=== PATIENT | female | born 1970 | race Caucasian/White ===

== ENCOUNTER 2019-02-10 16:12 | Emergency (ER) | payer BC, OTHER ==
[2019-02-10 16:21] VITALS: BMI 34.2
[2019-02-10] MEDS ORDERED: KETOROLAC TROMETHAMINE 60 MG/2 ML VIAL IM ONE (16:39)
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
[2019-02-10] MEDS ORDERED: DEXAMETHASONE SOD PHOSPHATE 10 MG/1 ML VIAL ONE (16:43)
[2019-02-10] MEDS ORDERED: KETOROLAC TROMETHAMINE 60 MG/2 ML VIAL ONE (16:43)
[2019-02-10] MEDS ORDERED: DEXAMETHASONE 4 MG TABLET (FP) PO ONE (16:45)
[2019-02-10] MEDS ORDERED: LORATADINE 10 MG TABLET PO ONE (17:11)
[2019-02-10] MEDS ORDERED: LORATADINE 10 MG TABLET ONE (17:17)
[2019-02-10 17:34] VITALS: BP 102/69; PULSE 98; TEMP 99.3
== END 2019-02-10 18:00 | disposition home or self-care (01) ==
LOC: JERFT 16:12
PROC: 3E0F7GC Introduction of Other Therapeutic Substance into Respiratory Tract, Via Natural or Artificial Opening (ICD-10-PCS; principal; 2019-02-10)
DX: R05 Cough (principal); Z77.22 Contact with and (suspected) exposure to environmental tobacco smoke (acute) (chronic)
CPT/HCPCS: 87070; 87880; 99282-25

== ENCOUNTER 2020-02-10 00:31 | Emergency (ER) | payer BC ==
[2020-02-10 00:47] VITALS: BP 132/88; PULSE 86; TEMP 98.6; BMI 35.7
[2020-02-10] MEDS ORDERED: ACETAMINOPHEN 325 MG TABLET (FP) PO ONE (01:13)
[2020-02-10] MEDS ORDERED: ACETAMINOPHEN 325 MG TABLET (FP) ONE (01:17)
[2020-02-10 01:56] LABS: EPI CELLS 24 /uL (0-25.1); HYALINE CASTS 0 /uL (0-3.1); PH,URINE 6.5 (5.0-8.0); URINE APPEARANCE CLEAR; URINE BACTERIA 197 /uL (0-1359); URINE BILIRUBIN NEGATIVE (NEGATIVE); URINE COLOR YELLOW; URINE GLUCOSE (UA) NEGATIVE (NEGATIVE); URINE KETONE NEGATIVE (NEGATIVE); URINE LEUK ESTERASE TRACE (NEGATIVE); URINE NITRITE NEGATIVE (NEGATIVE); URINE PROTEIN NEGATIVE (NEGATIVE); URINE RBC 3 /uL (0-23.9); URINE UROBILINOGEN 0.2 mg/dL (0.2-1.0); URINE WBC 18 /uL (0-25.8)
[2020-02-10] MEDS ORDERED: LIDOCAINE 5% TOPICAL PATCH TP ONE (02:34)
[2020-02-10 02:39] LABS: BASO % 0.5 % (0-2.0); HEMATOCRIT 38.5 % (32.4-45.2); HEMOGLOBIN 13.2 GM/dL (10.7-15.3); LYMPH % 34.5 % (8-40); MCH 31.5 pg (25.7-33.7); MCHC 34.2 g/dl (32.0-36.0); MEAN CELL VOLUME 92.1 fl (80-96); MEAN PLT VOLUME 9.1 fl (7.5-11.1); MONO % 8.6 % (3.8-10.2); NEUT % 54.4 % (42.8-82.8); PLATELET COUNT 171 K/MM3 (134-434); RBC 4.19 M/mm3 (3.60-5.2); RDW 13.2 % (11.6-15.6); WHITE BLOOD COUNT 7.2 K/mm3 (4.0-10.0)
[2020-02-10] MEDS ORDERED: LIDOCAINE 5% TOPICAL PATCH ONE (02:43)
[2020-02-10 02:56] LABS: POTASSIUM 3.9 mmol/L (3.5-5.1)
[2020-02-10 02:58] LABS: ALBUMIN 4.1 g/dl (3.4-5.0); BLOOD UREA NITROGEN 14.6 mg/dL (7-18); CALCIUM 9.3 mg/dL (8.5-10.1)
[2020-02-10 03:00] LABS: CREATININE 0.8 mg/dL (0.55-1.3)
[2020-02-10 03:03] LABS: TOT PROT 7.3 g/dl (6.4-8.2)
[2020-02-10 03:18] LABS: BILIRUBIN,TOTAL 0.7 mg/dL (0.2-1)
[2020-02-10] MEDS ORDERED: KETOROLAC TROMETHAMINE 30 MG/1 ML VIAL IM ONE (04:44)
[2020-02-10] MEDS ORDERED: KETOROLAC TROMETHAMINE 30 MG/1 ML VIAL ONE (04:46)
[2020-02-10] MEDS ORDERED: METHOCARBAMOL 500 MG TABLET PO ONE (05:01)
[2020-02-10] MEDS ORDERED: METHOCARBAMOL 500 MG TABLET ONE (05:02)
[2020-02-10] MEDS ORDERED: LIDOCAINE PATCH REMOVAL MC SCH (22:00)
== END 2020-02-10 05:05 | disposition home or self-care (01) ==
LOC: JER 00:31
PROC: 3E0233Z Introduction of Anti-inflammatory into Muscle, Percutaneous Approach (ICD-10-PCS; principal; 2020-02-10)
DX: S39.011A Strain of muscle, fascia and tendon of abdomen, initial encounter (principal)
CPT/HCPCS: 36415; 74176-TC; 76705-TC; 80053; 81003; 83605; 83690; 85025; 87086; 93005; 93010; 99285-25

== ENCOUNTER 2021-03-06 12:41 | Emergency (ER) | payer BC ==
[2021-03-06 12:53] VITALS: BMI 34.7
[2021-03-06 14:25] LABS: BASO % 1.1 % (0-2.0); EOS % 3.2 % (0-4.5); HEMATOCRIT 41.5 % (32.4-45.2); LYMPH % 33.8 % (8-40); MCH 30.7 pg (25.7-33.7); MCHC 33.6 g/dl (32.0-36.0); MEAN CELL VOLUME 91.3 fl (80-96); MEAN PLT VOLUME 8.1 fl (7.5-11.1); MONO % 7.6 % (3.8-10.2); NEUT % 54.3 % (42.8-82.8); PLATELET COUNT 190 10^3/uL (134-434); RBC 4.54 M/mm3 (3.60-5.2); RDW 13.6 % (11.6-15.6); WHITE BLOOD COUNT 6.9 K/mm3 (4.0-10.0)
[2021-03-06 14:33] LABS: CHLORIDE 102 mmol/L (98-107); SODIUM 127 mmol/L (136-145)
[2021-03-06 14:35] LABS: EPI CELLS 25 /uL (0-25.1); HYALINE CASTS 0 /uL (0-3.1); URINE APPEARANCE CLEAR; URINE BACTERIA 436 /uL (0-1359); URINE BILIRUBIN NEGATIVE (NEGATIVE); URINE COLOR YELLOW; URINE GLUCOSE (UA) NEGATIVE (NEGATIVE); URINE KETONE TRACE (NEGATIVE); URINE LEUK ESTERASE TRACE (NEGATIVE); URINE NITRITE NEGATIVE (NEGATIVE); URINE PROTEIN NEGATIVE (NEGATIVE); URINE RBC 5 /uL (0-23.9); URINE UROBILINOGEN 0.2 mg/dL (0.2-1.0); URINE WBC 15 /uL (0-25.8)
[2021-03-06 14:35] LABS: CALCIUM 8.6 mg/dL (8.5-10.1)
[2021-03-06 14:36] LABS: ALBUMIN 3.5 g/dl (3.4-5.0); BLOOD UREA NITROGEN 10.7 mg/dL (7-18); CO2 29 mmol/L (21-32); GLUCOSE,RANDOM 76 mg/dL (74-106)
[2021-03-06 14:38] LABS: INR 1.13 (0.83-1.09); SGPT/ALT 60 U/L (13-61)
[2021-03-06 14:39] LABS: CREATININE 0.8 mg/dL (0.55-1.3)
[2021-03-06 14:40] LABS: BILIRUBIN,TOTAL 1.1 mg/dL (0.2-1); TOT PROT 8.1 g/dl (6.4-8.2)
[2021-03-06 14:41] LABS: ALK PHOS 66 U/L (45-117)
[2021-03-06 14:43] LABS: ANION GAP -5 MMOL/L (8-16); SGOT/AST 122 U/L (15-37)
[2021-03-06 14:54] LABS: LIPASE < 10 U/L (73-393)
[2021-03-06] MEDS ORDERED: KETOROLAC TROMETHAMINE 30 MG/1 ML VIAL IVPUSH ONE (16:04)
[2021-03-06] MEDS ORDERED: KETOROLAC TROMETHAMINE 30 MG/1 ML VIAL ONE (16:33)
[2021-03-06 16:48] LABS: BLOOD UREA NITROGEN 8.8 mg/dL (7-18); CALCIUM 7.8 mg/dL (8.5-10.1)
[2021-03-06 16:52] LABS: CREATININE 0.5 mg/dL (0.55-1.3)
[2021-03-06] MEDS ORDERED: POTASSIUM CHLORIDE TABS 20 MEQ TABLET.ER (FP) PO ONE (16:56)
[2021-03-06 18:21] VITALS: BP 123/74; PULSE 78; TEMP 98
== END 2021-03-06 18:20 | disposition home or self-care (01) ==
LOC: JER 12:41
PROC: 3E0333Z Introduction of Anti-inflammatory into Peripheral Vein, Percutaneous Approach (ICD-10-PCS; principal; 2021-03-06)
DX: R10.31 Right lower quadrant pain (principal)
CPT/HCPCS: 36415; 74177-TC; 80048; 80053; 81003; 82962; 83605; 83690; 85025; 85610; 85730; 87086; 93005; 93010; 99285-25; C9803; Q9967; U0003; U0005

== ENCOUNTER 2021-07-24 10:48 | Inpatient (IN) | payer BC ==
[2021-07-24] MEDS ORDERED: KETOROLAC TROMETHAMINE 30 MG/1 ML VIAL IVPUSH ONE (12:10)
[2021-07-24] MEDS ORDERED: SODIUM CHLORIDE 1,000 ML IV STA (12:10)
[2021-07-24] MEDS ORDERED: KETOROLAC TROMETHAMINE 30 MG/1 ML VIAL ONE (12:19)
[2021-07-24] MEDS ORDERED: MAG HYDROX/AL HYDROX/SIMETH 30 ML UNIT-DOSE CUP PO ONE (12:21)
[2021-07-24] MEDS ORDERED: MAG HYDROX/AL HYDROX/SIMETH 30 ML UNIT-DOSE CUP ONE ×2 (12:23→21:20)
[2021-07-24 12:39] LABS: EPI CELLS 10 /uL (0-25.1); HYALINE CASTS 3 /uL (0-3.1); URINE APPEARANCE CLEAR; URINE BACTERIA 78 /uL (0-1359); URINE BILIRUBIN NEGATIVE (NEGATIVE); URINE COLOR DK YELLOW; URINE GLUCOSE (UA) NEGATIVE (NEGATIVE); URINE KETONE 3+ (NEGATIVE); URINE LEUK ESTERASE NEGATIVE (NEGATIVE); URINE NITRITE NEGATIVE (NEGATIVE); URINE PROTEIN 1+ (NEGATIVE); URINE RBC 13 /uL (0-23.9); URINE UROBILINOGEN 0.2 mg/dL (0.2-1.0); URINE WBC 10 /uL (0-25.8)
[2021-07-24 13:27] LABS: CALCIUM 9.1 mg/dL (8.5-10.1)
[2021-07-24 13:28] LABS: ALBUMIN 3.5 g/dl (3.4-5.0); BLOOD UREA NITROGEN 13.6 mg/dL (7-18)
[2021-07-24 13:30] LABS: CREATININE 0.7 mg/dL (0.55-1.3)
[2021-07-24 13:32] LABS: BASO % 0.6 % (0-2.0); BILIRUBIN,TOTAL 0.8 mg/dL (0.2-1); EOS % 0.9 % (0-4.5); HEMATOCRIT 43.6 % (32.4-45.2); HEMOGLOBIN 14.5 GM/dL (10.7-15.3); MCH 29.6 pg (25.7-33.7); MCHC 33.3 g/dl (32.0-36.0); MEAN CELL VOLUME 88.8 fl (80-96); MEAN PLT VOLUME 8.8 fl (7.5-11.1); MONO % 8.1 % (3.8-10.2); NEUT % 68.4 % (42.8-82.8); PLATELET COUNT 312 10^3/uL (134-434); RBC 4.91 M/mm3 (3.60-5.2); RDW 13.1 % (11.6-15.6); TOT PROT 7.2 g/dl (6.4-8.2); WHITE BLOOD COUNT 7.1 K/mm3 (4.0-10.0)
[2021-07-24 15:20] LABS: URINE CRYSTALS CA OXALATE /hpf
[2021-07-24] MEDS ORDERED: morphine SULFATE 4 MG/ML VIAL IVPUSH ONE (17:16)
[2021-07-24] MEDS ORDERED: morphine SULFATE 4 MG/ML VIAL ONE (17:26)
[2021-07-24 18:39] LABS: BF WBC & OTHER NUCLEATED CELLS 2902 /mm3
[2021-07-24 20:18] LABS: BODY FLUID MONOCYTE 4 %
[2021-07-24 20:19] LABS: BODY FLUID MACROPHAGES 47 %; BODY FLUID MESOTHELIAL 5 %
[2021-07-24] MEDS: MAG HYDROX/AL HYDROX/SIMETH 30 ML UNIT-DOSE CUP PO PRN (21:25)
[2021-07-25] MEDS: ACETAMINOPHEN 325 MG TABLET (FP) PO PRN ×2 (00:33→05:30)
[2021-07-25] MEDS: MAG HYDROX/AL HYDROX/SIMETH 30 ML UNIT-DOSE CUP PO PRN (03:01)
[2021-07-25] MEDS ORDERED: morphine CARPU-JECT 4 MG/1 ML DISP.SYRIN IVPUSH PRN (08:24)
[2021-07-25] MEDS ORDERED: morphine SULFATE 4 MG/ML VIAL IVPUSH PRN (08:34)
[2021-07-25] MEDS ORDERED: CEFTRIAXONE 2,000 MG in DEXTROSE 5%-WATER - 50 ML IVPB SCH (09:00)
[2021-07-25] MEDS ORDERED: DEXTROSE 5% IVPB SCH ×2 (09:10→10:00)
[2021-07-25] MEDS ORDERED: CEFTRIAXONE IVPB SCH (09:10)
[2021-07-25] MEDS ORDERED: WATER IVPB SCH ×2 (09:10→10:00)
[2021-07-25] MEDS: PANTOPRAZOLE 40 MG TABLET PO SCH (09:32)
[2021-07-25] MEDS: ENOXAPARIN NA (PORCINE) 40 MG/0.4 ML DISP.SYRIN SQ SCH (09:32)
[2021-07-25] MEDS ORDERED: CEFTRIAXONE 1 GM in DEXTROSE 5%-WATER - 50 ML IVPB SCH (10:00)
[2021-07-25] MEDS ORDERED: CEFOTAXIME SODIUM IVPB SCH (10:00)
[2021-07-25] MEDS ORDERED: CEFOTAXIME SODIUM 2,000 MG in DEXTROSE 5%-WATER - 50 ML IVPB SCH (10:00)
[2021-07-25] MEDS ORDERED: CEFTRIAXONE 2 GM in DEXTROSE 5%-WATER 100 ML IVPB SCH ×2 (11:13→11:26)
[2021-07-25] MEDS ORDERED: DEXTROSE 5%-WATER 100 ML IVPB ONE (11:20)
[2021-07-25] MEDS ORDERED: oxyCODONE HCL 5 MG TABLET PO ONE (11:30)
[2021-07-25] MEDS: CEFTRIAXONE 2 GM in DEXTROSE 5%-WATER 100 ML IVPB SCH (11:36)
[2021-07-25 12:46] LABS: BASO % 0.6 % (0-2.0); EOS % 1.8 % (0-4.5); HEMATOCRIT 38.5 % (32.4-45.2); HEMOGLOBIN 12.9 GM/dL (10.7-15.3); LYMPH % 24.3 % (8-40); MCH 29.9 pg (25.7-33.7); MCHC 33.5 g/dl (32.0-36.0); MEAN CELL VOLUME 89.3 fl (80-96); MEAN PLT VOLUME 8.3 fl (7.5-11.1); MONO % 9.1 % (3.8-10.2); NEUT % 64.2 % (42.8-82.8); PLATELET COUNT 242 10^3/uL (134-434); RBC 4.31 M/mm3 (3.60-5.2)
[2021-07-25 12:53] LABS: INR 1.08 (0.83-1.09); PROTHROMBIN TIME (PATIENT) 12.4 SEC (9.7-13.0)
[2021-07-25 12:56] LABS: ACTIVATED PTT 31.1 SECONDS (25.2-36.5)
[2021-07-25 13:05] LABS: BLOOD UREA NITROGEN 12.7 mg/dL (7-18); CALCIUM 8.4 mg/dL (8.5-10.1); MAGNESIUM 2.3 mg/dL (1.8-2.4)
[2021-07-25 13:06] LABS: ALBUMIN 2.9 g/dl (3.4-5.0)
[2021-07-25 13:09] LABS: CREATININE 0.7 mg/dL (0.55-1.3); PHOSPHOROUS 3.1 mg/dL (2.5-4.9)
[2021-07-25 13:10] LABS: BILIRUBIN,TOTAL 0.6 mg/dL (0.2-1); TOT PROT 6.1 g/dl (6.4-8.2)
[2021-07-25] MEDS: morphine SULFATE 4 MG/ML VIAL IVPUSH PRN ×3 (14:32→23:47)
[2021-07-25] MEDS ORDERED: MELATONIN 5 MG TABLETS PO PRN (21:00)
[2021-07-25] MEDS: MELATONIN 5 MG TABLETS PO PRN (21:30)
[2021-07-26] MEDS: oxyCODONE HCL 5 MG TABLET PO PRN (02:59)
[2021-07-26] MEDS: MAG HYDROX/AL HYDROX/SIMETH 30 ML UNIT-DOSE CUP PO PRN ×3 (02:59→16:17)
[2021-07-26] MEDS ORDERED: GLYCERIN 1 RECTAL SUPPOSITORY, ADULT PR ONE (04:22)
[2021-07-26] MEDS: SENNOSIDES/DOCUSATE COMBO (SENNA PLUS) TABLET (UD) PO SCH ×3 (06:09→21:16)
[2021-07-26] MEDS: morphine SULFATE 4 MG/ML VIAL IVPUSH PRN ×4 (06:18→20:38)
[2021-07-26 08:21] LABS: BASO % 0.4 % (0-2.0); EOS % 0.9 % (0-4.5); HEMATOCRIT 39.7 % (32.4-45.2); HEMOGLOBIN 13.4 GM/dL (10.7-15.3); LYMPH % 20.1 % (8-40); MCH 30.3 pg (25.7-33.7); MCHC 33.7 g/dl (32.0-36.0); MEAN CELL VOLUME 89.7 fl (80-96); MEAN PLT VOLUME 8.9 fl (7.5-11.1); NEUT % 69.6 % (42.8-82.8); PLATELET COUNT 271 10^3/uL (134-434); RBC 4.42 M/mm3 (3.60-5.2); RDW 13.4 % (11.6-15.6); WHITE BLOOD COUNT 5.7 K/mm3 (4.0-10.0)
[2021-07-26 08:35] LABS: CALCIUM 8.6 mg/dL (8.5-10.1)
[2021-07-26 08:36] LABS: BLOOD UREA NITROGEN 12.2 mg/dL (7-18); CREATININE 0.7 mg/dL (0.55-1.3)
[2021-07-26 08:37] LABS: BILIRUBIN,TOTAL 0.5 mg/dL (0.2-1); TOT PROT 6.3 g/dl (6.4-8.2)
[2021-07-26] MEDS ORDERED: DEXTROSE 5%-WATER 100 ML IVPB ONE (08:47)
[2021-07-26] MEDS: CEFTRIAXONE 2 GM in DEXTROSE 5%-WATER 100 ML IVPB SCH (09:15)
[2021-07-26] MEDS: ENOXAPARIN NA (PORCINE) 40 MG/0.4 ML DISP.SYRIN SQ SCH (09:16)
[2021-07-26] MEDS: PANTOPRAZOLE 40 MG TABLET PO SCH (09:16)
[2021-07-26] MEDS: ACETAMINOPHEN 1000 MG/100 ML BAG IVPB PRN (11:09)
[2021-07-26] MEDS ORDERED: KETOROLAC TROMETHAMINE 15 MG/ML VIAL IVPUSH ONE (15:50)
[2021-07-26] MEDS: MELATONIN 5 MG TABLETS PO PRN (20:50)
[2021-07-27] MEDS: ACETAMINOPHEN 1000 MG/100 ML BAG IVPB PRN ×2 (00:20→06:44)
[2021-07-27] MEDS: morphine SULFATE 4 MG/ML VIAL IVPUSH PRN ×4 (02:40→18:13)
[2021-07-27 09:34] LABS: BASO % 0.6 % (0-2.0); EOS % 1.8 % (0-4.5); HEMATOCRIT 37.5 % (32.4-45.2); HEMOGLOBIN 12.6 GM/dL (10.7-15.3); LYMPH % 22.7 % (8-40); MCH 29.9 pg (25.7-33.7); MCHC 33.6 g/dl (32.0-36.0); MEAN CELL VOLUME 89.1 fl (80-96); MEAN PLT VOLUME 8.6 fl (7.5-11.1); MONO % 10.5 % (3.8-10.2); NEUT % 64.4 % (42.8-82.8); PLATELET COUNT 251 10^3/uL (134-434)
[2021-07-27] MEDS: ENOXAPARIN NA (PORCINE) 40 MG/0.4 ML DISP.SYRIN SQ SCH (09:34)
[2021-07-27] MEDS: PANTOPRAZOLE 40 MG TABLET PO SCH (09:35)
[2021-07-27] MEDS ORDERED: DEXTROSE 5%-WATER 100 ML IVPB ONE (09:39)
[2021-07-27] MEDS: SENNOSIDES/DOCUSATE COMBO (SENNA PLUS) TABLET (UD) PO SCH ×2 (09:50→21:11)
[2021-07-27] MEDS: CEFTRIAXONE 2 GM in DEXTROSE 5%-WATER 100 ML IVPB SCH (09:51)
[2021-07-27 09:59] LABS: CALCIUM 8.5 mg/dL (8.5-10.1)
[2021-07-27 10:00] LABS: ALBUMIN 2.9 g/dl (3.4-5.0); BLOOD UREA NITROGEN 15.1 mg/dL (7-18); MAGNESIUM 2.4 mg/dL (1.8-2.4)
[2021-07-27 10:03] LABS: CREATININE 0.6 mg/dL (0.55-1.3)
[2021-07-27 10:05] LABS: BILIRUBIN,TOTAL 0.5 mg/dL (0.2-1); TOT PROT 5.9 g/dl (6.4-8.2)
[2021-07-27] MEDS: oxyCODONE HCL 5 MG TABLET PO PRN (10:25)
[2021-07-27] MEDS: MELATONIN 5 MG TABLETS PO PRN (21:11)
[2021-07-28] MEDS: morphine SULFATE 4 MG/ML VIAL IVPUSH PRN ×2 (00:48→07:37)
[2021-07-28 08:31] LABS: BASO % 0.5 % (0-2.0); EOS % 1.7 % (0-4.5); HEMATOCRIT 36.8 % (32.4-45.2); HEMOGLOBIN 12.3 GM/dL (10.7-15.3); LYMPH % 23.5 % (8-40); MCH 29.8 pg (25.7-33.7); MCHC 33.5 g/dl (32.0-36.0); MEAN CELL VOLUME 89.1 fl (80-96); MONO % 9.8 % (3.8-10.2); NEUT % 64.5 % (42.8-82.8); PLATELET COUNT 243 10^3/uL (134-434); RBC 4.12 M/mm3 (3.60-5.2); RDW 12.9 % (11.6-15.6); WHITE BLOOD COUNT 5.9 K/mm3 (4.0-10.0)
[2021-07-28] MEDS ORDERED: DEXTROSE 5%-WATER 100 ML IVPB ONE (08:58)
[2021-07-28 08:59] LABS: CALCIUM 8.1 mg/dL (8.5-10.1)
[2021-07-28 09:00] LABS: ALBUMIN 2.4 g/dl (3.4-5.0); BLOOD UREA NITROGEN 11.5 mg/dL (7-18)
[2021-07-28 09:03] LABS: CREATININE 0.6 mg/dL (0.55-1.3)
[2021-07-28 09:04] LABS: BILIRUBIN,TOTAL 0.7 mg/dL (0.2-1); TOT PROT 5.6 g/dl (6.4-8.2)
[2021-07-28] MEDS: SENNOSIDES/DOCUSATE COMBO (SENNA PLUS) TABLET (UD) PO SCH (09:22)
[2021-07-28] MEDS: PANTOPRAZOLE 40 MG TABLET PO SCH (09:22)
[2021-07-28] MEDS: CEFTRIAXONE 2 GM in DEXTROSE 5%-WATER 100 ML IVPB SCH (09:22)
[2021-07-28] MEDS: ENOXAPARIN NA (PORCINE) 40 MG/0.4 ML DISP.SYRIN SQ SCH (09:22)
[2021-07-28] MEDS ORDERED: POLYETHYLENE GLYCOL 3350 119 GM BTL PO SCH (12:45)
[2021-07-28] MEDS: MAG HYDROX/AL HYDROX/SIMETH 30 ML UNIT-DOSE CUP PO PRN (18:07)
[2021-07-28] MEDS: MELATONIN 5 MG TABLETS PO PRN (21:20)
[2021-07-28] MEDS: POLYETHYLENE GLYCOL (HEALTHYLAX) 3350 17 GM PACKET PO SCH (21:20)
[2021-07-28] MEDS: SENNOSIDES 8.6MG TABLET (FP) PO SCH (21:20)
[2021-07-28] MEDS: ACETAMINOPHEN 1000 MG/100 ML BAG IVPB PRN (21:20)
[2021-07-29] MEDS: ENOXAPARIN NA (PORCINE) 40 MG/0.4 ML DISP.SYRIN SQ SCH (09:34)
[2021-07-29] MEDS: PANTOPRAZOLE 40 MG TABLET PO SCH (09:34)
[2021-07-29] MEDS: POLYETHYLENE GLYCOL (HEALTHYLAX) 3350 17 GM PACKET PO SCH ×2 (09:34→21:36)
[2021-07-29] MEDS: ACETAMINOPHEN 1000 MG/100 ML BAG IVPB PRN (09:38)
[2021-07-29 09:40] LABS: CALCIUM 8.5 mg/dL (8.5-10.1)
[2021-07-29 09:41] LABS: ALBUMIN 2.5 g/dl (3.4-5.0); BLOOD UREA NITROGEN 9.5 mg/dL (7-18)
[2021-07-29 09:44] LABS: CREATININE 0.5 mg/dL (0.55-1.3)
[2021-07-29 09:45] LABS: TOT PROT 5.4 g/dl (6.4-8.2)
[2021-07-29 09:46] LABS: BILIRUBIN,TOTAL 0.4 mg/dL (0.2-1)
[2021-07-29 15:12] VITALS: BMI 33.9
[2021-07-29 18:07] LABS: BODY FLUID ALBUMIN 2.9 g/dL (Not Estab.)
[2021-07-29 18:44] LABS: BF WBC & OTHER NUCLEATED CELLS 3974 /mm3; BODY FLUID MACROPHAGES 15 %; BODY FLUID MESOTHELIAL 5 %; BODY FLUID MONOCYTE 16 %
[2021-07-29] MEDS: SENNOSIDES 8.6MG TABLET (FP) PO SCH (21:36)
[2021-07-29] MEDS: MELATONIN 5 MG TABLETS PO PRN (21:37)
[2021-07-29] MEDS: oxyCODONE HCL 5 MG TABLET PO PRN (21:38)
[2021-07-30] MEDS: ACETAMINOPHEN 1000 MG/100 ML BAG IVPB PRN ×4 (03:31→21:18)
[2021-07-30 08:39] LABS: BASO % 0.7 % (0-2.0); EOS % 1.8 % (0-4.5); HEMATOCRIT 36.6 % (32.4-45.2); HEMOGLOBIN 12.3 GM/dL (10.7-15.3); LYMPH % 25.8 % (8-40); MCH 29.7 pg (25.7-33.7); MCHC 33.5 g/dl (32.0-36.0); MEAN CELL VOLUME 88.7 fl (80-96); MEAN PLT VOLUME 8.7 fl (7.5-11.1); NEUT % 62.7 % (42.8-82.8); PLATELET COUNT 274 10^3/uL (134-434); RBC 4.12 M/mm3 (3.60-5.2); WHITE BLOOD COUNT 5.7 K/mm3 (4.0-10.0)
[2021-07-30 08:56] LABS: ALBUMIN 2.2 g/dl (3.4-5.0); CALCIUM 8.1 mg/dL (8.5-10.1)
[2021-07-30 08:59] LABS: CREATININE 0.5 mg/dL (0.55-1.3)
[2021-07-30 09:01] LABS: BILIRUBIN,TOTAL 0.4 mg/dL (0.2-1); TOT PROT 5.3 g/dl (6.4-8.2)
[2021-07-30] MEDS: POLYETHYLENE GLYCOL (HEALTHYLAX) 3350 17 GM PACKET PO SCH ×2 (09:17→21:06)
[2021-07-30] MEDS: PANTOPRAZOLE 40 MG TABLET PO SCH (09:17)
[2021-07-30] MEDS: ENOXAPARIN NA (PORCINE) 40 MG/0.4 ML DISP.SYRIN SQ SCH (09:17)
[2021-07-30] MEDS: oxyCODONE HCL 5 MG TABLET PO PRN (21:06)
[2021-07-30] MEDS: SENNOSIDES 8.6MG TABLET (FP) PO SCH (21:07)
[2021-07-30] MEDS: MELATONIN 5 MG TABLETS PO PRN (21:18)
[2021-07-31] MEDS: ACETAMINOPHEN 1000 MG/100 ML BAG IVPB PRN (02:53)
[2021-07-31] MEDS: ENOXAPARIN NA (PORCINE) 40 MG/0.4 ML DISP.SYRIN SQ SCH (09:20)
[2021-07-31] MEDS: POLYETHYLENE GLYCOL (HEALTHYLAX) 3350 17 GM PACKET PO SCH (09:20)
[2021-07-31] MEDS: PANTOPRAZOLE 40 MG TABLET PO SCH (09:20)
[2021-07-31] MEDS ORDERED: morphine SULFATE 4 MG/ML VIAL IVPUSH PRN (12:10)
[2021-07-31 14:49] VITALS: BP 94/59; PULSE 62; TEMP 98.4
[2021-07-31 18:07] LABS: BODY FLUID ALBUMIN 2.9 g/dL (Not Estab.)
== END 2021-07-31 18:05 | disposition home or self-care (01) | DRG 948 ==
LOC: JER 10:48 → JERBED 18:21 → J7W 22:46
PROVIDERS: ADMIT Internal Medicine; ATTEND Internal Medicine
PROC: 0W9G3ZZ Drainage of Peritoneal Cavity, Percutaneous Approach (ICD-10-PCS; principal; 2021-07-27)
PROC: 0W9G3ZX Drainage of Peritoneal Cavity, Percutaneous Approach, Diagnostic (ICD-10-PCS; 2021-07-29)
DX: R18.0 Malignant ascites (principal); K75.81 Nonalcoholic steatohepatitis (NASH); K57.90 Diverticulosis of intestine, part unspecified, without perforation or abscess without bleeding; K59.00 Constipation, unspecified
CPT/HCPCS: 36415; 74177-TC; 76830-TC; 76942-TC; 80053; 81003; 82042; 82150; 82378; 82945; 83615; 83690; 83735; 83986; 84100; 84157; 85025; 85610; 85730; 86301; 86304; 86480; 87040; 87070; 87075; 87205; 88108; 88305-TC; 97116-GP; 97161-GP; 99285-25; C9803-CS; Q9967; U0003; U0005